=== PATIENT | male | born 1985 | race Two or more races ===

== ENCOUNTER 2019-03-20 14:03 | Inpatient (IN) | payer OTHER ==
[~2019-03-20] VITALS: Ht 170.2 cm; Wt 75.7 kg
[2019-03-20 14:43] LABS: Basophils # (auto) 0 uL; Basophils % (auto) 0.4 % (0.0-2.0); Eosinophils # (auto) 0.1 uL; Eosinophils % (auto) 1.7 % (0.0-7.0); Hematocrit 42.4 % (41.0-53.0); Hemoglobin 15.4 g/dL (13.5-17.5); Lymphocytes # (auto) 1.8 uL; Lymphocytes % (auto) 26.5 % (10.0-50.0); Mean Corpuscular Hemoglobin 30.5 pg (28.0-32.0); Mean Corpuscular Hgb Conc. 36.2 g/dL (32.0-36.0); Mean Corpuscular Volume 84.3 fL (80.0-100.0); Monocytes # (auto) 0.5 uL; Monocytes % (auto) 7.7 % (0.0-12.0); Neutrophils # (auto) 4.2 uL; Neutrophils % (auto) 63.7 % (37.0-80.0); Nucleated Red Blood Cells % 0.1 %; Platelet Count (auto) 214 10^3/uL (140-450); Red Blood Cells 5.03 10^6/uL (4.5-5.90); White Blood Cell 6.7 10^3/uL (4.4-10.8)
[2019-03-20 15:03] LABS: Albumin 3.8 g/dL (3.4-5.0); BUN/Creatinine Ratio 13.8; Calcium 8.2 mg/dL (8.5-10.1); Potassium 3.9 mmol/L (3.5-5.1)
[2019-03-20 15:06] LABS: Bilirubin, Total 0.3 mg/dL (0.2-1.0); Total Protein 7.7 g/dL (6.4-8.2)
[2019-03-20] MEDS ORDERED: SODIUM CHLORIDE 0.9% 1,000 ML IVB ONE (16:07)
[2019-03-20] MEDS ORDERED: MORPHINE SULF INJ 2 MG/ML SYRINGE 1ML IV ONE (16:45)
[2019-03-20] MEDS ORDERED: ONDANSETRON HCL 4 MG/2 ML VIAL IV ONE (16:45)
[2019-03-20 16:49] LABS: INR 0.95 (0.9-1.15); Partial Thromboplastin Time 27.7 sec (23.64-32.05)
[2019-03-20 20:23] LABS: Urine Bacteria NONE SEEN /hpf (None Seen); Urine Blood Negative /uL (Negative); Urine Specific Gravity 1.008 (1.001-1.035); Urine WBC <1 /hpf (0 - 3)
[2019-03-20] MEDS ORDERED: D5W/SOD CHL 0.45% 1,000 ML IV ONE (23:00)
[2019-03-20] MEDS ORDERED: ONDANSETRON HCL 4 MG/2 ML VIAL IV PRN (23:00)
[2019-03-20] MEDS ORDERED: MORPHINE SULFATE 4 MG/ML SYR/VIAL IV PRN (23:00)
[2019-03-20 23:30] VITALS: BP 110/77
--- NOTE | 2019-03-21 | NUR ---
33YR OLD ADDMITTED TO [facility] 244-5 IS ALERT ORIENTATED TO ROOM IS SHACKLED TO BED GUARDS AT HIS BESIDE IS NPO
[2019-03-21] MEDS: LEVOFLOXACIN 500MG 100 ML IV SCH ×2 (00:30→23:34)
[2019-03-21 01:13] VITALS: BP 110/70
[2019-03-21] MEDS: metroNIDAZOLE 500MG/100ML 100 ML IV SCH ×3 (02:37→21:32)
[2019-03-21 05:14] VITALS: BP 108/43
--- NOTE | 2019-03-21 08:00 | NUR ---
ASSESSMENT NOTE PATIENT IS ALERT ORIENTED X4, RESTING IN BED COMFORTABLY, NO DISTRESS NOTED, DENIES ABDOMEN PAIN OR SHORTNESS OF BREATH, PT HAS HAND CUFF AT LEFT HAND, GUARDS AT BED SIDE AT ALL TIMES
[2019-03-21 08:51] VITALS: BP 126/70
[2019-03-21] MEDS ORDERED: metroNIDAZOLE 500MG/100ML 100 ML IV SCH (10:00)
--- NOTE | 2019-03-21 12:33 | NUR ---
PAGE DR CHOWDHURY TO OBTAIN A SURGICAL CONSULT AND DIET ORDER FOR TODAY
[2019-03-21 13:00] VITALS: BP 110/57
--- NOTE | 2019-03-21 13:00 | NUR ---
DR CHOWDHURY IS HERE FOLLOWING UP ON PT, SAID TO KEEP PT NPO
[2019-03-21] MEDS ORDERED: OMNIPAQUE ORAL SOLN 500ml 12mg/ml PO ONE (14:43)
--- NOTE | 2019-03-21 15:30 | NUR ---
IV insertion IV access obtained, via clean sterile technique by inserting 20 gauge catheter at after attempt(s). IV secured properly. No trauma to site. Patient tolerated procedure well.FOR CT PURPOSES
[2019-03-21 15:38] LABS: Hepatitis A Ab IgM Negative; Hepatitis B Core IgM Negative; Hepatitis B Surface Antigen Negative (Negative); Hepatitis C Antibody Negative (Negative)
[2019-03-21 17:08] VITALS: BP 137/84
[2019-03-21] MEDS ORDERED: IOHEXOL 300 MG/ML 100ML BOTTLE IJ ONE (17:12)
--- NOTE | 2019-03-21 18:30 | NUR ---
PT CONTINUE STABLE, CONTINUE MONITORING
--- NOTE | 2019-03-21 20:20 | NUR ---
RECEIVE IN BED WITH GUARD AT BEDSIDE NO VOICED COMPLAINTS
[2019-03-21 21:00] VITALS: BP 118/70
[2019-03-21] MEDS: PANTOPRAZOLE 40 MG/10 ML VIAL INJ IV SCH (21:32)
[2019-03-22 04:30] VITALS: BP 136/63
[2019-03-22] MEDS: metroNIDAZOLE 500MG/100ML 100 ML IV SCH ×2 (06:12→13:41)
[2019-03-22 08:00] VITALS: BP 140/65
--- NOTE | 2019-03-22 08:00 | NUR ---
Opening Shift Note Assumed care of patient, awake and alert. No S/S of distress/SOB. Patient reports 3/10 pain in abdomen. Patient refused pain medication. Instructed on POC and to call for assist PRN, will continue to monitor for changes Q1hr and PRN.
[2019-03-22 09:00] VITALS: BP 140/65
[2019-03-22] MEDS: PANTOPRAZOLE 40 MG/10 ML VIAL INJ IV SCH (10:34)
[2019-03-22] MEDS ORDERED: LEVO500T21 PO (11:44)
[2019-03-22 13:00] VITALS: BP 140/79
--- NOTE | 2019-03-22 13:00 | NUR ---
PATIENT TOLERATED LUNCH AT A REGULAR DIET. DENIES PAIN/N/V.
--- NOTE | 2019-03-22 14:20 | NUR ---
DISCHARGE Discharge instructions given as ordered. Encourage to follow up with long term MD as instructed. All questions and concerns addressed. Patient verbalized understanding. IV removed with catheter intact, pressure dressing applied. Patient is discharged waiting in room for transportation back to facility. Guards at the bedside.
--- NOTE | 2019-03-22 15:30 | NUR ---
OFF UNIT PATIENT LEFT UNIT IN WHEELCHAIR WITH ALL PERSONAL BELONGINGS WITH RESIDENTIAL PERSONNEL. NO S/S OF DISTRESS NOTED AT TIME OF DEPARTURE.
== END 2019-03-22 16:30 | DRG 690 ==
LOC: EEVIPCON 14:03 → ER 14:03 → EAST 14:04
PROVIDERS: ADMIT Internal Medicine; ATTEND Internal Medicine
DX: N30.90 Cystitis, unspecified without hematuria (principal); Z87.891 Personal history of nicotine dependence; Z83.3 Family history of diabetes mellitus; Z72.89 Other problems related to lifestyle
CPT/HCPCS: 36415; 71045; 74176; 74177; 76700; 80053; 80074; 81001; 83735; 85025; 85610; 85730; 87081; C9113; G0378; J1956; J2405; J3490